=== PATIENT | female | born 1945 | race Two or more races ===

== ENCOUNTER 2022-05-30 14:36 | Inpatient (IN) | payer MEDICARE, MEDICAID ==
[~2022-05-30] VITALS: Ht 152.4 cm; Wt 55.1 kg
[2022-05-30] MEDS ORDERED: ONDANSETRON HCL 4 MG/2 ML VIAL IV ONE (15:00)
[2022-05-30] MEDS ORDERED: PANTOPRAZOLE 40 MG/10 ML VIAL INJ IV ONE ×2 (15:00→17:15)
[2022-05-30] MEDS ORDERED: MORPHINE SULFATE 4 MG/ML SYR/VIAL IV ONE (15:00)
[2022-05-30 15:20] LABS: Eosinophils # (auto) 0 10 ^3/uL (0-0.8); Hemoglobin 13.1 g/dL (12.2-16.2); Lymphocytes # (auto) 0.7 10 ^3/uL (0.4-5.4); Monocytes # (auto) 0.6 10 ^3/uL (0-1.3); Neutrophils % (auto) 87.8 % (37.0-80.0); White Blood Cell 11.4 10^3/uL (4.4-10.8)
[2022-05-30 15:22] LABS: Basophils # (auto) 0 10 ^3/uL (0-0.2); Basophils % (auto) 0.3 % (0.0-2.0); Eosinophils % (auto) 0.1 % (0.0-7.0); Hematocrit 41.3 % (36.0-46.0); Lymphocytes % (auto) 6.3 % (10.0-50.0); Mean Corpuscular Hemoglobin 22.7 pg (28.0-32.0); Mean Corpuscular Hgb Conc. 31.6 g/dL (32.0-36.0); Mean Corpuscular Volume 71.7 fL (80.0-100.0); Monocytes % (auto) 5.5 % (0.0-12.0); Red Blood Cells 5.76 10^6/uL (4.0-5.20); Red Cell Distribution Width 16.4 % (11.8-14.3)
[2022-05-30 15:33] LABS: Albumin 3.7 g/dL (3.4-5.0); Calcium 9.2 mg/dL (8.5-10.1); Magnesium 2.2 mg/dL (1.6-2.6); Potassium 3.8 mmol/L (3.5-5.1)
[2022-05-30 15:50] LABS: BUN/Creatinine Ratio 26.5 (10.0-20.0); Bilirubin, Total 0.9 mg/dL (0.2-1.0)
[2022-05-30 16:02] LABS: Urine Bacteria NONE SEEN /hpf (None Seen); Urine Blood Negative /uL (Negative); Urine Mucus FEW (None Seen); Urine Specific Gravity 1.023 (1.001-1.035); Urine WBC 1 /hpf (0 - 5)
[2022-05-30] MEDS ORDERED: cefTRIAXone 1GM/50ML D5W 50 ML IV ONE (17:15)
[2022-05-30] MEDS ORDERED: ONDANSETRON HCL 4 MG/2 ML VIAL IV PRN (17:15)
[2022-05-30] MEDS ORDERED: metroNIDAZOLE 500MG/100ML 100 ML IV ONE (17:15)
[2022-05-30] MEDS ORDERED: hydrALAZINE HCL 20 MG/ML VL IV PRN (17:15)
[2022-05-30] MEDS ORDERED: LACTATED RINGER'S 1,000 ML IV SCH (17:15)
[2022-05-30] MEDS ORDERED: LOS25T PO (17:44)
[2022-05-30] MEDS ORDERED: MORPHINE SULFATE INJ 2 MG/ml SYRG IV PRN (18:15)
[2022-05-30 18:31] LABS: INR 0.98 (0.9-1.15); Partial Thromboplastin Time 21.3 sec (24.6-33.4)
[2022-05-30 18:35] LABS: Cholesterol 211 mg/dL (< 200); HDL Cholesterol 85 mg/dL (40-59); LDL Cholesterol 116 mg/dL (< 100); Triglycerides 143 mg/dL (< 150)
[2022-05-30] MEDS: metroNIDAZOLE 500MG/100ML 100 ML IV SCH (21:48)
[2022-05-31] MEDS ORDERED: PROMETHAZINE HCL 25 MG/ML 1ML IV ONE (02:00)
[2022-05-31 05:17] LABS: Basophils # (auto) 0 10 ^3/uL (0-0.2); Eosinophils # (auto) 0 10 ^3/uL (0-0.8); Eosinophils % (auto) 0.1 % (0.0-7.0); Hemoglobin 14.9 g/dL (12.2-16.2); Lymphocytes # (auto) 0.3 10 ^3/uL (0.4-5.4); Monocytes # (auto) 0.7 10 ^3/uL (0-1.3); Nucleated Red Blood Cells % 0.1 %
[2022-05-31 05:20] LABS: Basophils % (auto) 0.1 % (0.0-2.0); Hematocrit 47.1 % (36.0-46.0); Lymphocytes % (auto) 5.3 % (10.0-50.0); Mean Corpuscular Hemoglobin 22.9 pg (28.0-32.0); Mean Corpuscular Hgb Conc. 31.6 g/dL (32.0-36.0); Mean Corpuscular Volume 72.6 fL (80.0-100.0); Monocytes % (auto) 11.6 % (0.0-12.0); Neutrophils # (auto) 5.4 10 ^3/uL (1.6-8.6); Neutrophils % (auto) 82.9 % (37.0-80.0); Red Blood Cells 6.48 10^6/uL (4.0-5.20); White Blood Cell 6.5 10^3/uL (4.4-10.8)
[2022-05-31 05:39] LABS: Albumin 3.2 g/dL (3.4-5.0); Calcium 8.4 mg/dL (8.5-10.1); Potassium 3.6 mmol/L (3.5-5.1)
[2022-05-31 05:44] LABS: BUN/Creatinine Ratio 22.8 (10.0-20.0); Bilirubin, Total 1.5 mg/dL (0.2-1.0)
[2022-05-31] MEDS: metroNIDAZOLE 500MG/100ML 100 ML IV SCH ×3 (06:15→17:26)
[2022-05-31] MEDS ORDERED: GASTROGRAFIN 120 ML SOL ONE (08:26)
[2022-05-31] MEDS: cefTRIAXone 1GM/50ML D5W 50 ML IV SCH (09:18)
[2022-05-31] MEDS: PANTOPRAZOLE 40 MG/10 ML VIAL INJ IV SCH (09:18)
[2022-05-31] MEDS ORDERED: LOSARTAN POTASSIUM 25 MG TAB PO SCH (10:00)
[2022-05-31] MEDS ORDERED: cloNIDine HCL 0.1 MG TAB PO PRN (12:15)
[2022-05-31] MEDS: SODIUM CHLORIDE 0.9% 1,000 ML IV SCH ×2 (15:32→23:50)
[2022-05-31 16:14] VITALS: BP 108/67
[2022-05-31 18:08] LABS: Lactic Acid w/Reflex 2.6 mmol/L (0.4-2.0)
[2022-05-31 22:00] VITALS: BP 116/64
[2022-06-01] MEDS: metroNIDAZOLE 500MG/100ML 100 ML IV SCH ×4 (02:15→18:20)
[2022-06-01 05:00] VITALS: BP 109/50
[2022-06-01 06:40] LABS: Basophils # (auto) 0 10 ^3/uL (0-0.2); Eosinophils # (auto) 0 10 ^3/uL (0-0.8); Hemoglobin 11.8 g/dL (12.2-16.2); Lymphocytes # (auto) 0.6 10 ^3/uL (0.4-5.4); Monocytes # (auto) 0.7 10 ^3/uL (0-1.3)
[2022-06-01 06:42] LABS: Basophils % (auto) 0.3 % (0.0-2.0); Eosinophils % (auto) 0.6 % (0.0-7.0); Hematocrit 38.2 % (36.0-46.0); Lymphocytes % (auto) 7.9 % (10.0-50.0); Mean Corpuscular Hemoglobin 22.4 pg (28.0-32.0); Mean Corpuscular Volume 72.3 fL (80.0-100.0); Monocytes % (auto) 9.8 % (0.0-12.0); Neutrophils # (auto) 5.9 10 ^3/uL (1.6-8.6); Neutrophils % (auto) 81.4 % (37.0-80.0); Nucleated Red Blood Cells % 0.1 %; Red Blood Cells 5.29 10^6/uL (4.0-5.20); Red Cell Distribution Width 16.9 % (11.8-14.3); White Blood Cell 7.2 10^3/uL (4.4-10.8)
[2022-06-01] MEDS: SODIUM CHLORIDE 0.9% 1,000 ML IV SCH ×4 (06:45→23:18)
[2022-06-01 06:56] LABS: Albumin 2.6 g/dL (3.4-5.0); BUN/Creatinine Ratio 48.5 (10.0-20.0); Bilirubin, Total 1.1 mg/dL (0.2-1.0); Calcium 7.6 mg/dL (8.5-10.1); Potassium 3.6 mmol/L (3.5-5.1); Total Protein 5.4 g/dL (6.4-8.2)
[2022-06-01 08:00] VITALS: BP 106/54
[2022-06-01] MEDS: PANTOPRAZOLE 40 MG/10 ML VIAL INJ IV SCH (11:00)
[2022-06-01] MEDS: cefTRIAXone 1GM/50ML D5W 50 ML IV SCH (11:54)
[2022-06-01 12:19] VITALS: BP 99/49
[2022-06-01 16:27] VITALS: BP 107/54
[2022-06-01 22:00] VITALS: BP 104/54
[2022-06-02] MEDS: metroNIDAZOLE 500MG/100ML 100 ML IV SCH ×3 (02:31→18:20)
[2022-06-02 05:00] VITALS: BP 99/58
[2022-06-02] MEDS: SODIUM CHLORIDE 0.9% 1,000 ML IV SCH ×2 (06:45→14:45)
[2022-06-02 09:00] VITALS: BP 106/50
[2022-06-02] MEDS: cefTRIAXone 1GM/50ML D5W 50 ML IV SCH (10:04)
[2022-06-02] MEDS: PANTOPRAZOLE 40 MG/10 ML VIAL INJ IV SCH (10:05)
[2022-06-02 12:40] VITALS: BP 106/48
[2022-06-02] MEDS ORDERED: METR500T PO (15:17)
[2022-06-02] MEDS ORDERED: LEVO500T31 PO (15:17)
[2022-06-02 16:15] VITALS: BP 110/48
== END 2022-06-02 20:10 | disposition home or self-care (01) | DRG 388 ==
LOC: ER 14:36 → OVERFLOW 17:32 → TELE-EAST 05-31 15:43 → EAST 05-31 16:57
PROVIDERS: ADMIT Nurse Practitioner Family; ATTEND Internal Medicine
PROC: 0D9670Z Drainage of Stomach with Drainage Device, Via Natural or Artificial Opening (ICD-10-PCS; principal; 2022-05-30)
DX: K56.600 Partial intestinal obstruction, unspecified as to cause (principal); N17.0 Acute kidney failure with tubular necrosis; R65.10 Systemic inflammatory response syndrome (SIRS) of non-infectious origin without acute organ dysfunction; K52.9 Noninfective gastroenteritis and colitis, unspecified; D72.829 Elevated white blood cell count, unspecified; I10 Essential (primary) hypertension; Z20.822 Contact with and (suspected) exposure to COVID-19; Z85.038 Personal history of other malignant neoplasm of large intestine; Z90.49 Acquired absence of other specified parts of digestive tract; Z90.710 Acquired absence of both cervix and uterus
CPT/HCPCS: 36415; 74176; 74250; 80053; 80061; 81001; 83036; 83605; 83690; 83735; 84443; 84484; 85025; 85610; 85730; 87040; 87086; 87426; 93005; 93306; C9113; G0378; J0696; J2405; J3490

== ENCOUNTER 2022-12-27 10:19 | Inpatient (IN) | payer MEDICARE, MEDICAID ==
[~2022-12-27] VITALS: Ht 152.4 cm; Wt 52.2 kg
[~2022-12-27 10:19] MED LIST: LEVO500T31 PO; LOS25T PO; METR500T PO
[2022-12-27 11:00] LABS: Basophils # (auto) 0 10 ^3/uL (0-0.2); Basophils % (auto) 0.9 % (0.0-2.0); Eosinophils # (auto) 0 10 ^3/uL (0-0.8); Eosinophils % (auto) 0.6 % (0.0-7.0); Hematocrit 45.2 % (36.0-46.0); Hemoglobin 15.3 g/dL (12.2-16.2); Lymphocytes # (auto) 1.1 10 ^3/uL (0.4-5.4); Lymphocytes % (auto) 22.3 % (10.0-50.0); Mean Corpuscular Hemoglobin 29.1 pg (28.0-32.0); Mean Corpuscular Hgb Conc. 33.9 g/dL (32.0-36.0); Monocytes # (auto) 0.5 10 ^3/uL (0-1.3); Monocytes % (auto) 10.1 % (0.0-12.0); Neutrophils # (auto) 3.1 10 ^3/uL (1.6-8.6); Neutrophils % (auto) 66.1 % (37.0-80.0); Nucleated Red Blood Cells % 0.1 %; Red Blood Cells 5.25 10^6/uL (4.0-5.20); Red Cell Distribution Width 13.7 % (11.8-14.3); White Blood Cell 4.8 10^3/uL (4.4-10.8)
[2022-12-27 11:20] LABS: Alanine Aminotransferase 18 U/L (7-40); Albumin 4.3 g/dL (3.2-4.8); Alkaline Phosphatase 68 U/L (46-116); Anion Gap 6 (5-15); Aspartate Aminotransferase 14 U/L (13-40); BUN/Creatinine Ratio 16.7 (10.0-20.0); Blood Urea Nitrogen 14 mg/dL (9-23); Calcium 9.7 mg/dL (8.7-10.4); Carbon Dioxide 29 mmol/L (20-30); Chloride 104 mmol/L (98-107); Glucose 111 mg/dL (74-106); Lipase 39 U/L (12-53); Potassium 3.8 mmol/L (3.5-5.1); Sodium 139 mmol/L (136-145)
[2022-12-27 11:21] LABS: Total Protein 6.7 g/dL (5.7-8.2)
[2022-12-27 11:47] LABS: Urine Bacteria NONE SEEN /hpf (None Seen); Urine Blood Negative /uL (Negative); Urine Clarity Clear (Clear); Urine Color Yellow (Yellow); Urine Mucus FEW (None Seen); Urine Protein, UAD Negative (Negative); Urine Urobilinogen Normal (Negative); Urine WBC 3 /hpf (0 - 5)
[2022-12-27] MEDS ORDERED: NITR-87 PO (11:53)
[2022-12-27 12:09] LABS: Bilirubin, Total 1.3 mg/dL (0.2-1.0)
[2022-12-27] MEDS ORDERED: ONDANSETRON HCL 4 MG/2 ML VIAL IV PRN (16:45)
[2022-12-27] MEDS ORDERED: cefTRIAXone 1GM/50ML D5W 50 ML IV ONE (16:45)
[2022-12-27] MEDS ORDERED: VANCOMYCIN HCL 125MG/5ML ORAL SOL GT ONE (16:45)
[2022-12-27] MEDS ORDERED: ACETAMINOPHEN 325 MG TAB PO PRN (16:45)
[2022-12-27] MEDS ORDERED: hydrALAZINE HCL 20 MG/ML VL IV PRN (17:00)
[2022-12-27] MEDS ORDERED: PANTOPRAZOLE 40 MG TAB PO ONE (17:00)
[2022-12-27] MEDS ORDERED: KETOROLAC TROMETH 60MG/2ML VIAL IV ONE (17:00)
[2022-12-27] MEDS: SODIUM CHLORIDE 0.9% 1,000 ML IV SCH (18:06)
[2022-12-27] MEDS: VANCOMYCIN HCL 125MG/5ML ORAL SOL GT SCH ×2 (19:15→22:00)
[2022-12-28 04:31] LABS: Basophils # (auto) 0 10 ^3/uL (0-0.2); Basophils % (auto) 1.1 % (0.0-2.0); Eosinophils # (auto) 0.1 10 ^3/uL (0-0.8); Eosinophils % (auto) 2.1 % (0.0-7.0); Hematocrit 40.3 % (36.0-46.0); Hemoglobin 13.2 g/dL (12.2-16.2); Lymphocytes # (auto) 1.2 10 ^3/uL (0.4-5.4); Lymphocytes % (auto) 29.7 % (10.0-50.0); Mean Corpuscular Hemoglobin 28.2 pg (28.0-32.0); Mean Corpuscular Hgb Conc. 32.7 g/dL (32.0-36.0); Mean Corpuscular Volume 86.2 fL (80.0-100.0); Monocytes # (auto) 0.5 10 ^3/uL (0-1.3); Monocytes % (auto) 13.8 % (0.0-12.0); Neutrophils # (auto) 2.1 10 ^3/uL (1.6-8.6); Neutrophils % (auto) 53.3 % (37.0-80.0); Nucleated Red Blood Cells % 0.1 %; Red Blood Cells 4.68 10^6/uL (4.0-5.20); Red Cell Distribution Width 13.9 % (11.8-14.3)
[2022-12-28 04:48] LABS: Alanine Aminotransferase 12 U/L (7-40); Albumin 3.5 g/dL (3.2-4.8); Alkaline Phosphatase 52 U/L (46-116); Anion Gap 6 (5-15); Aspartate Aminotransferase 10 U/L (13-40); BUN/Creatinine Ratio 16.2 (10.0-20.0); Bilirubin, Total 1.2 mg/dL (0.2-1.0); Blood Urea Nitrogen 12 mg/dL (9-23); Calcium 8.8 mg/dL (8.7-10.4); Carbon Dioxide 26 mmol/L (20-30); Chloride 108 mmol/L (98-107); Potassium 3.8 mmol/L (3.5-5.1); Sodium 140 mmol/L (136-145); Total Protein 5.7 g/dL (5.7-8.2)
[2022-12-28 05:05] LABS: Glucose 82 mg/dL (74-106)
[2022-12-28] MEDS: SODIUM CHLORIDE 0.9% 1,000 ML IV SCH ×2 (06:05→20:21)
[2022-12-28] MEDS: VANCOMYCIN HCL 125MG/5ML ORAL SOL GT SCH ×4 (06:32→22:28)
[2022-12-28 08:00] VITALS: PULSE 64; RESP 17; O2SAT 97
[2022-12-28] MEDS: cefTRIAXone 1GM/50ML D5W 50 ML IV SCH (09:46)
[2022-12-28] MEDS: PANTOPRAZOLE 40 MG TAB PO SCH (12:02)
[2022-12-28] MEDS: LOSARTAN POTASSIUM 25 MG TAB PO SCH ×2 (12:20→12:23)
[2022-12-29 05:14] LABS: Alanine Aminotransferase 10 U/L (7-40); Albumin 3.4 g/dL (3.2-4.8); Alkaline Phosphatase 52 U/L (46-116); Anion Gap 6 (5-15); Aspartate Aminotransferase 11 U/L (13-40); BUN/Creatinine Ratio 9.1 (10.0-20.0); Bilirubin, Total 1.4 mg/dL (0.2-1.0); Blood Urea Nitrogen 6 mg/dL (9-23); Calcium 8.5 mg/dL (8.7-10.4); Carbon Dioxide 25 mmol/L (20-30); Chloride 111 mmol/L (98-107); Magnesium 1.9 mg/dL (1.6-2.6); Potassium 3.8 mmol/L (3.5-5.1); Sodium 142 mmol/L (136-145)
[2022-12-29 05:15] LABS: Total Protein 5.6 g/dL (5.7-8.2)
[2022-12-29 05:18] LABS: Folate (Folic Acid) 18.51 ng/mL (>5.38)
[2022-12-29 05:21] LABS: Basophils # (auto) 0 10 ^3/uL (0-0.2); Basophils % (auto) 0.9 % (0.0-2.0); Eosinophils # (auto) 0.1 10 ^3/uL (0-0.8); Eosinophils % (auto) 2.7 % (0.0-7.0); Hematocrit 40.4 % (36.0-46.0); Hemoglobin 13.4 g/dL (12.2-16.2); Lymphocytes # (auto) 0.8 10 ^3/uL (0.4-5.4); Lymphocytes % (auto) 26.8 % (10.0-50.0); Mean Corpuscular Hemoglobin 28.5 pg (28.0-32.0); Mean Corpuscular Hgb Conc. 33.2 g/dL (32.0-36.0); Mean Corpuscular Volume 86.1 fL (80.0-100.0); Monocytes # (auto) 0.4 10 ^3/uL (0-1.3); Neutrophils # (auto) 1.8 10 ^3/uL (1.6-8.6); Neutrophils % (auto) 56.6 % (37.0-80.0); Nucleated Red Blood Cells % 0.2 %; Red Cell Distribution Width 13.8 % (11.8-14.3); White Blood Cell 3.1 10^3/uL (4.4-10.8)
[2022-12-29 05:34] LABS: INR 1.04 (0.9-1.15); Prothrombin Time 10.9 sec (9.3-11.8)
[2022-12-29 05:47] LABS: Glucose 81 mg/dL (74-106); Triglycerides 108 mg/dL (< 150)
[2022-12-29 05:48] LABS: CRP High Sensitivity 0.06 mg/dL (<1.0); LDL Cholesterol 75 mg/dL (< 100)
[2022-12-29 05:49] LABS: Cholesterol 135 mg/dL (< 200); HDL Cholesterol 50 mg/dL (40-59)
[2022-12-29 05:58] LABS: Erythrocyte Sedimentation Rate 6 mm/hr (0-20)
[2022-12-29] MEDS: VANCOMYCIN HCL 125MG/5ML ORAL SOL GT SCH (06:07)
[2022-12-29] MEDS: SODIUM CHLORIDE 0.9% 1,000 ML IV SCH (09:24)
[2022-12-29] MEDS: cefTRIAXone 1GM/50ML D5W 50 ML IV SCH (09:24)
[2022-12-29] MEDS: LOSARTAN POTASSIUM 25 MG TAB PO SCH (11:15)
[2022-12-29] MEDS: PANTOPRAZOLE 40 MG TAB PO SCH (11:16)
[2022-12-29 11:28] VITALS: BP 123/59; PULSE 76; RESP 95; TEMP 98.4; O2SAT 95
[2022-12-29 13:14] LABS: Urine Bacteria NONE SEEN /hpf (None Seen); Urine Blood Negative /uL (Negative); Urine Clarity Clear (Clear); Urine Color Colorless (Yellow); Urine Protein, UAD Negative (Negative); Urine Specific Gravity 1.004 (1.001-1.035); Urine Urobilinogen Normal (Negative); Urine WBC 3 /hpf (0 - 5); Urine pH 6.5 (5.0-8.0)
[2022-12-30] MEDS ORDERED: FAMOTIDINE 20 MG TAB PO SCH (10:00)
== END 2022-12-29 14:53 | disposition home or self-care (01) | DRG 392 ==
LOC: ER 10:19 → OVERFLOW 16:47
PROVIDERS: ADMIT Internal Medicine; ATTEND Student in an Organized Health Care Education/Training Program
DX: A05.9 Bacterial foodborne intoxication, unspecified (principal); I10 Essential (primary) hypertension; R19.7 Diarrhea, unspecified; N20.0 Calculus of kidney; Z66 Do not resuscitate; Z85.048 Personal history of other malignant neoplasm of rectum, rectosigmoid junction, and anus; Z90.710 Acquired absence of both cervix and uterus; Z93.3 Colostomy status; Z90.49 Acquired absence of other specified parts of digestive tract; E53.8 Deficiency of other specified B group vitamins
CPT/HCPCS: 36415; 74176; 76705; 80053; 80061; 81001; 82306; 82607; 82746; 83036; 83605; 83690; 83735; 84443; 84484; 85025; 85610; 85652; 86141; 87045; 87086; 87177; 87427; 87493; 93005; 96365; G0378; J0696; J1885

== ENCOUNTER 2024-05-04 21:52 | Emergency (ER) | payer MEDICARE, MEDICAID ==
[~2024-05-04] VITALS: Ht 147.3 cm; Wt 52.5 kg
[~2024-05-04 21:52] MED LIST changes: +NITR-87 PO
[2024-05-04 22:40] LABS: Basophils # (auto) 0 10 ^3/uL (0-0.2); Basophils % (auto) 0.5 % (0.0-2.0); Eosinophils # (auto) 0 10 ^3/uL (0-0.8); Eosinophils % (auto) 0.2 % (0.0-7.0); Hematocrit 43.9 % (36.0-46.0); Hemoglobin 14.3 g/dL (12.2-16.2); Lymphocytes # (auto) 0.8 10 ^3/uL (0.4-5.4); Lymphocytes % (auto) 10.3 % (10.0-50.0); Mean Corpuscular Hemoglobin 27.4 pg (28.0-32.0); Mean Corpuscular Hgb Conc. 32.7 g/dL (32.0-36.0); Mean Corpuscular Volume 83.8 fL (80.0-100.0); Monocytes # (auto) 0.8 10 ^3/uL (0-1.3); Monocytes % (auto) 9.1 % (0.0-12.0); Neutrophils # (auto) 6.6 10 ^3/uL (1.6-8.6); Neutrophils % (auto) 79.9 % (37.0-80.0); Platelet Count (auto) 256 10^3/uL (140-450); Red Blood Cells 5.24 10^6/uL (4.0-5.20); Red Cell Distribution Width 14.4 % (11.8-14.3); White Blood Cell 8.2 10^3/uL (4.4-10.8)
[2024-05-04 22:45] LABS: Urine Bacteria None Seen /hpf (None Seen)
[2024-05-04 22:58] LABS: Urine Blood Negative /uL (Negative); Urine Clarity Clear (Clear); Urine Color Colorless (Yellow); Urine Protein, UAD Negative (Negative); Urine Specific Gravity 1.006 (1.001-1.035); Urine Squamous Epithelial Cell None Seen /hpf (<5); Urine Urobilinogen Normal (Negative); Urine WBC 29 /HPF (0-5)
[2024-05-04 23:02] LABS: Alanine Aminotransferase 16 U/L (7-40); Albumin 4.4 g/dL (3.2-4.8); Alkaline Phosphatase 56 U/L (46-116); Anion Gap 8 (5-15); Aspartate Aminotransferase 18 U/L (13-40); BUN/Creatinine Ratio 15.4 (10.0-20.0); Bilirubin, Total 0.8 mg/dL (0.2-1.0); Blood Urea Nitrogen 10 mg/dL (9-23); Calcium 10.2 mg/dL (8.7-10.4); Carbon Dioxide 26 mmol/L (20-31); Chloride 105 mmol/L (98-107); Lipase 41 U/L (12-53); Potassium 4.3 mmol/L (3.5-5.1); Sodium 139 mmol/L (136-145); Total Protein 6.6 g/dL (5.7-8.2)
--- NOTE | 2024-05-04 23:13 | ED.PDOC ---
History of Present Illness HPI Comments 78 y/o F presents with relative for c/o bilateral lower quadrant abdominal pain that radiates towards her back, today. She denies any urinary symptoms, nausea, vomiting, flank pain, fever, or chills at this time. Chief Complaint: Flank Pain Time Seen by MD: 22:10 Primary Care Provider: OSBALDO Allen Notes: Nurses Notes, Medications, Allergies Allergies: Coded Allergies: NO KNOWN ALLERGIES (Unverified , 05/30/22) Home Meds Active Scripts Cefdinir (Cefdinir) 300 Mg Cap, 1 CAP PO BID for 7 Days, #14 CAP Prov:LOREE LEDBETTER MD 05/05/24 Nitrofurantoin Monohydrate Mac (Macrobid) 100 Mg Cap, 100 MG PO BID for 5 Days, #10 CAP Prov:ROBERT AQUINO MD 12/27/22 Metronidazole (Flagyl) 500 Mg Tab, 500 MG PO TID for 5 Days, #15 TAB Prov:PILI COLBERT MD 06/02/22 Levofloxacin (Levaquin) 500 Mg Tab, 500 MG PO QAM for 5 Days, #5 TAB Prov:PILI COLBERT MD 06/02/22 Reported Medications Losartan Potassium (Losartan Potassium) 25 Mg Tab, 1 TAB PO DAILY 05/30/22 Information Source: Patient, Relative Mode of Arrival: Ambulatory Severity: Moderate Timing: Hours Duration: Since onset Prehospital treatment: None Past Medical History PAST MEDICAL HISTORY: Cancer Surgical History: Cholecystectomy, Hysterectomy DIGITAL SALES REPRESENTATIVE History: No Pertinent DIGITAL SALES REPRESENTATIVE History Family History Family History: Reviewed,noncontributory to illness Social History Smoker: Non-Smoker Alcohol: Denies ETOH Use Drugs: Denies Drug Use Lives In: Home All Other Systems: Reviewed and Negative (comprehensive overview of systems negative unless otherwise stated in HPI) Physical Exam General Appearance: Mild Distress, Normal HEENT: Normal ENT Inspection, Pharynx Normal, TMs Normal Neck: Full Range of Motion, Non-Tender, Normal, Normal Inspection Respiratory: Chest Non-Tender, Lungs Clear, No Accessory Muscle Use, No Respiratory Distress, Normal Breath Sounds Cardiovascular: No Edema, No JVD, No Murmur, No Gallop, Normal Peripheral Pulses, Regular Rate/Rhythm Breast Exam: Deferred Gastrointestinal: LLQ, No Organomegaly, No Pulsatile Mass, Normal Bowel Sounds, RLQ, Soft, Tenderness (bilateral lower quadrants ) Genitalia: Deferred Pelvic: Deferred Rectal: Deferred Extremities: No calf tenderness, Normal capillary refill, Normal inspection, Normal range of motion, Non-tender, No pedal edema Musculoskeletal : Apperance: Normal Neurologic: Alert, 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 Was a procedure done?: No Differential Dx Considerations may include: PID, ovarian cysts, ovarian torsions, musculoskeletal pain, diverticulitis, UTI X-Ray, Labs, Meds, VS Vital Signs Date Time Temp Pulse Resp B/P (MAP) Pulse Ox O2 Delivery O2 Flow Rate FiO2 05/05/24 01:35 65 12 130/62 (84) 96 05/05/24 00:48 78 12 121/63 05/05/24 00:45 78 12 95 Room Air* 0 21 05/05/24 00:44 98.6 78 12 121/63 (82) 95 98.6 05/04/24 22:23 98.3 79 16 137/70 (92) 97 Lab Test 05/04/24 22:30 05/04/24 22:27 Range/Units White Blood Count 8.2 4.4-10.8 10^3/uL Red Blood Count 5.24 H 4.0-5.20 10^6/uL Hemoglobin 14.3 12.2-16.2 g/dL Hematocrit 43.9 36.0-46.0 % Mean Corpuscular Volume 83.8 80.0-100.0 fL Mean Corpuscular Hemoglobin 27.4 L 28.0-32.0 pg Mean Corpuscular Hemoglobin Concent 32.7 32.0-36.0 g/dL Red Cell Distribution Width 14.4 H 11.8-14.3 % Platelet Count 256 140-450 10^3/uL Mean Platelet Volume 8.5 6.9-10.8 fL Neutrophils (%) (Auto) 79.9 37.0-80.0 % Lymphocytes (%) (Auto) 10.3 10.0-50.0 % Monocytes (%) (Auto) 9.1 0.0-12.0 % Eosinophils (%) (Auto) 0.2 0.0-7.0 % Basophils (%) (Auto) 0.5 0.0-2.0 % Neutrophils # (Auto) 6.6 1.6-8.6 10 ^3/uL Lymphocytes # (Auto) 0.8 0.4-5.4 10 ^3/uL Monocytes # (Auto) 0.8 0-1.3 10 ^3/uL Eosinophils # (Auto) 0 0-0.8 10 ^3/uL Basophils # (Auto) 0 0-0.2 10 ^3/uL Nucleated Red Blood Cells 0.0 % Sodium Level 139 136-145 mmol/L Potassium Level 4.3 3.5-5.1 mmol/L Chloride Level 105 98-107 mmol/L Carbon Dioxide Level 26 20-31 mmol/L Anion Gap 8 5-15 Blood Urea Nitrogen 10 9-23 mg/dL Creatinine 0.65 0.550-1.02 mg/dL Glomerular Filtration Rate Calc 90 >90 mL/min BUN/Creatinine Ratio 15.4 10.0-20.0 Serum Glucose 108 H 74-106 mg/dL Calcium Level 10.2 8.7-10.4 mg/dL Total Bilirubin 0.8 0.2-1.0 mg/dL Aspartate Amino Transferase (AST) 18 13-40 U/L Alanine Aminotransferase (ALT) 16 7-40 U/L Alkaline Phosphatase 56 46-116 U/L Total Protein 6.6 5.7-8.2 g/dL Albumin 4.4 3.2-4.8 g/dL Lipase 41 12-53 U/L Urine Color Colorless Yellow Urine Clarity Clear Clear Urine pH 7.0 5.0-9.0 Urine Specific [place] 1.006 1.001-1.035 Urine Protein Negative Negative Urine Ketones Negative Negative Urine Blood Negative Negative /uL Urine Nitrite Negative Negative Urine Bilirubin Negative Negative Urine Urobilinogen Normal Negative mg/dL Urine Leukocyte Esterase 2+ Negative /uL Urine RBC 4 0 - 4 /hpf Urine Microscopic WBC 29 H 0-5 /HPF Urine Squamous Epithelial Cells None seen <5 /hpf Urine Bacteria None seen None Seen /hpf Urine Glucose Normal Normal mg/dL Current Medications Medications (Trade) Dose Ordered Sig/Jayy Route Start Time Stop Time Status Last Admin Ondansetron HCl (Zofran) 4 mg ONCE ONCE IV 05/04/24 22:30 05/04/24 22:31 DC 05/05/24 00:47 Morphine Sulfate 4 mg ONCE ONCE IV 05/04/24 22:30 05/04/24 22:31 DC 05/05/24 00:48 Sodium Chloride 500 ml @ 500 mls/hr Q1H ONCE IVB 05/04/24 22:30 05/04/24 23:29 DC 05/05/24 00:46 Ceftriaxone Sodium 50 ml @ 100 mls/hr ONCE ONCE IV 05/05/24 00:45 05/05/24 01:14 DC 05/05/24 00:46 Time of 1ST Reevaluation: 22:40 Reevaluation 1ST: Unchanged Time of 2ND Reevaluation: 23:30 Reevaluation 2ND: Improved Patient Education/Counseling: Diagnosis, Treatment Family Education/Counseling: Diagnosis, Treatment Departure 1 Departure Time of Disposition: 23:30 Impression: Primary Impression: UTI (urinary tract infection) Additional Impression: Acute abdominal pain Disposition: HOME / SELF CARE / HOMELESS Condition: Guarded e-Prescriptions Cefdinir (Cefdinir) 300 Mg Cap 1 CAP PO BID for 7 Days, #14 CAP Prov: LOREE LEDBETTER MD 05/05/24 Discharged With: Self Critical Care Note Critical Care Time?: No Stability Stability form required: No Heart Score Heart Score: Heart Score Response (Comments) Value History N/A 0 EKG N/A 0 Age N/A 0 Risk Factors N/A 0 Troponin N/A 0 Total 0 I personally scribed for LOREE LEDBETTER MD ([email or web address]) on 05/04/24 at 23:13. Electronically submitted by Rip Echeverria ([email or web address]). LOREE LEDBETTER MD May 04, 2024 23:13
[2024-05-04 23:17] LABS: Glucose 108 mg/dL (74-106)
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
[2024-05-05] MEDS ORDERED: CEFD300C2 PO (00:37)
[2024-05-05 00:44] VITALS: TEMP 98.6
[2024-05-05 00:45] VITALS: PULSE 78; RESP 12; O2SAT 95
[2024-05-05] MEDS: cefTRIAXone 1GM/50ML D5W 50 ML IV ONE (00:46)
[2024-05-05] MEDS: SODIUM CHLORIDE 0.9% 500 ML IVB ONE (00:46)
[2024-05-05] MEDS: ONDANSETRON HCL 4 MG/2 ML VIAL IV ONE (00:47)
[2024-05-05] MEDS: IOHEXOL 300 MG/ML 100ML BOTTLE IJ ONE (00:48)
[2024-05-05] MEDS: MORPHINE SULFATE 4 MG/ML SYR/VIAL IV ONE (00:48)
[2024-05-05 01:35] VITALS: BP 130/62; PULSE 65; RESP 12; O2SAT 96
== END 2024-05-05 01:40 | disposition home or self-care (01) ==
LOC: ER 21:52
DX: N39.0 Urinary tract infection, site not specified (principal); Z90.49 Acquired absence of other specified parts of digestive tract; Z90.710 Acquired absence of both cervix and uterus; Z79.899 Other long term (current) drug therapy
CPT/HCPCS: 36415; 74177; 80053; 81001; 83690; 85025; 96365; 96375; 99285; J0696; J2270; J2405; J7040; Q9967

== ENCOUNTER 2024-05-28 09:39 | Inpatient (IN) | payer MEDICARE, MEDICAID ==
[~2024-05-28] VITALS: Ht 144.8 cm; Wt 51.0 kg
[~2024-05-28 09:39] MED LIST changes: +CEFD300C2 PO
[2024-05-28 10:25] LABS: Urine Bacteria None Seen /hpf (None Seen)
[2024-05-28 10:38] LABS: Urine Blood 1+ /uL (Negative); Urine Clarity Clear (Clear); Urine Color Yellow (Yellow); Urine Protein, UAD Negative (Negative); Urine Specific Gravity 1.017 (1.001-1.035); Urine Squamous Epithelial Cell FEW /hpf (<5); Urine Urobilinogen Normal (Negative); Urine WBC 3 /HPF (0-5); Urine pH 5.5 (5.0-9.0)
--- NOTE | 2024-05-28 10:41 | ED.PDOC ---
GI ASSESSMENT HPI Comments 78 y/o F, with PMHX of colorectal cancer and HTN presents to the ED for CC of constipation. Patient states, that she has been experiencing symptoms of constipation with associated diffuse abdominal pain, back pain, and chills x3days. Patient relays, that she took MiraLAX in attempt to have a bowel movement; provided no relief. Patient comments on, being admitted to [facility] in past with similar symptoms. Patient denies fever, nausea, body-aches, or irregular diet. No other symptoms or modifying factors at this time. Chief Complaint: Abdominal Pain Time Seen by MD: 10:15 Primary Care Provider: OSBALDO Allen Notes: Nurses Notes, Medications, Allergies Allergies: Coded Allergies: NO KNOWN ALLERGIES (Unverified , 05/30/22) Home Meds Active Scripts Cefdinir (Cefdinir) 300 Mg Cap, 1 CAP PO BID for 7 Days, #14 CAP Prov:LOREE LEDBETTER MD 05/05/24 Nitrofurantoin Monohydrate Mac (Macrobid) 100 Mg Cap, 100 MG PO BID for 5 Days, #10 CAP Prov:ROBERT AQUINO MD 12/27/22 Metronidazole (Flagyl) 500 Mg Tab, 500 MG PO TID for 5 Days, #15 TAB Prov:PILI COLBERT MD 06/02/22 Levofloxacin (Levaquin) 500 Mg Tab, 500 MG PO QAM for 5 Days, #5 TAB Prov:PILI COLBERT MD 06/02/22 Reported Medications Losartan Potassium (Losartan Potassium) 25 Mg Tab, 1 TAB PO DAILY 05/30/22 Information Source: Patient Mode of Arrival: Ambulatory Timing: Days Duration: Since onset Prehospital treatment: None Quality: None Vomitus: None Stool: Impaction Severity: Moderate Recent: None Recent Hx of: None Pain Location: Diffuse Modifying Factors: Nothing Associated sign and symptoms: Abdominal Pain Past Medical History PAST MEDICAL HISTORY: Cancer Surgical History: Cholecystectomy, Hysterectomy PIN WORKER History: No Pertinent PIN WORKER History Family History Family History: Reviewed,noncontributory to illness Social History Smoker: Non-Smoker Alcohol: Denies ETOH Use Drugs: Denies Drug Use Lives In: Home Constitutional: reports: chills; denies: diaphoresis, fatigue, fever, malaise, sweats, weakness, others EENTM: denies: blurred vision, double vision, ear bleeding, ear discharge, ear drainage, ear pain, ear ringing, eye pain, eye redness, hearing loss, mouth pain, mouth swelling, nasal discharge, nose bleeding, nose congestion, nose pain, photophobia, tearing, throat pain, throat swelling, voice changes, others Respiratory: denies: cough, hemoptysis, orthopnea, SOB at rest, shortness of breath, SOB with excertion, stridor, wheezing, others Cardiovascular: denies: chest pain, dizzy spells, diaphoresis, Dyspnea on exertion, edema, irregular heart beat, left arm pain, lightheadedness, palpitations, PND, syncope, others Gastrointestinal: reports: abdominal pain, constipated; denies: abdomen distended, blood streaked bowels, diarrhea, dysphagia, difficulty swallowing, hematemesis, melena, nausea, poor appetite, poor fluid intake, rectal bleeding, rectal pain, vomiting, others Genitourinary: denies: abnormal vagina bleeding, burning, dyspareunia, dysuria, flank pain, frequency, hematuria, incontinence, pain, , vagina discharge, urgency, others Neurological: denies: dizziness, fainting, headache, left sided numbness, left sided weakness, numbness, paresthesia, pre-existing deficit, right sided numbness, right sided weakness, seizure, speech problems, tingling, tremors, weakness, others Musculoskeletal: reports: back pain; denies: gout, joint pain, joint swelling, muscle pain, muscle stiffness, neck pain, others Integumetry: denies: bruises, change in color, change in hair/nails, dryness, laceration, lesions, lumps, rash, wounds, others Allergic/Immunocompromised: denies: Difficulty Healing, Frequent Infections, Hives, Itching, others Hematologic/Lymphatic: denies: anemia, blood clots, easy bleeding, easy bruising, swollen glands, others Endocrine: denies: excessive hunger, excessive sweating, excessive thirst, excessive urination, flushing, intolerance to cold, intolerance to heat, unexplained weight gain, unexplained weight loss, others Psychiatric: denies: anxiety, bipolar disorder, depression, hopeless, panic disorder, schizophrenia, sleepless, suicidal, others All Other Systems: Reviewed and Negative Physical Exam General Appearance: Mild Distress HEENT: Normal ENT Inspection, Pharynx Normal, TMs Normal Neck: Full Range of Motion, Non-Tender, Normal, Normal Inspection Respiratory: Chest Non-Tender, Lungs Clear, No Accessory Muscle Use, No Respiratory Distress, Normal Breath Sounds Cardiovascular: No Edema, No JVD, No Murmur, No Gallop, Normal Peripheral Pulses, Regular Rate/Rhythm Breast Exam: Deferred Gastrointestinal: Diffuse, No Organomegaly, No Pulsatile Mass, Normal Bowel Sounds, Soft, Tenderness Genitalia: Deferred Pelvic: Deferred Rectal: Deferred Extremities: No calf tenderness, Normal capillary refill, Normal inspection, Normal range of motion, Non-tender, No pedal edema Musculoskeletal : Apperance: Normal 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 Was a procedure done?: No GI differential Dx Differential Diagnosis: Bowel Obstruction, Constipation X-Ray, Labs, Meds, VS Vital Signs Date Time Temp Pulse Resp B/P (MAP) Pulse Ox O2 Delivery O2 Flow Rate FiO2 05/28/24 09:58 97.0 81 18 176/76 (109) 97 97.0 Lab Test 05/28/24 10:38 05/28/24 09:11 Range/Units White Blood Count 6.3 4.4-10.8 10^3/uL Red Blood Count 5.21 H 4.0-5.20 10^6/uL Hemoglobin 15.2 12.2-16.2 g/dL Hematocrit 44.9 36.0-46.0 % Mean Corpuscular Volume 86.2 80.0-100.0 fL Mean Corpuscular Hemoglobin 29.2 28.0-32.0 pg Mean Corpuscular Hemoglobin Concent 33.9 32.0-36.0 g/dL Red Cell Distribution Width 15.6 H 11.8-14.3 % Platelet Count 237 140-450 10^3/uL Mean Platelet Volume 8.4 6.9-10.8 fL Neutrophils (%) (Auto) 77.2 37.0-80.0 % Lymphocytes (%) (Auto) 12.0 10.0-50.0 % Monocytes (%) (Auto) 10.1 0.0-12.0 % Eosinophils (%) (Auto) 0.4 0.0-7.0 % Basophils (%) (Auto) 0.3 0.0-2.0 % Neutrophils # (Auto) 4.8 1.6-8.6 10 ^3/uL Lymphocytes # (Auto) 0.8 0.4-5.4 10 ^3/uL Monocytes # (Auto) 0.6 0-1.3 10 ^3/uL Eosinophils # (Auto) 0 0-0.8 10 ^3/uL Basophils # (Auto) 0 0-0.2 10 ^3/uL Nucleated Red Blood Cells 0.0 % Sodium Level 142 136-145 mmol/L Potassium Level 4.0 3.5-5.1 mmol/L Chloride Level 107 98-107 mmol/L Carbon Dioxide Level 28 20-31 mmol/L Anion Gap 7 5-15 Blood Urea Nitrogen 12 9-23 mg/dL Creatinine 0.74 0.550-1.02 mg/dL Glomerular Filtration Rate Calc 82 >90 mL/min BUN/Creatinine Ratio 16.2 10.0-20.0 Serum Glucose 87 74-106 mg/dL Calcium Level 9.6 8.7-10.4 mg/dL Urine Color Yellow Yellow Urine Clarity Clear Clear Urine pH 5.5 5.0-9.0 Urine Specific [place] 1.017 1.001-1.035 Urine Protein Negative Negative Urine Ketones Negative Negative Urine Blood 1+ H Negative /uL Urine Nitrite Negative Negative Urine Bilirubin Negative Negative Urine Urobilinogen Normal Negative mg/dL Urine Leukocyte Esterase Negative Negative /uL Urine RBC 5 0 - 4 /hpf Urine Microscopic WBC 3 0-5 /HPF Urine Squamous Epithelial Cells Few <5 /hpf Urine Bacteria None seen None Seen /hpf Urine Glucose Normal Normal mg/dL The patient's CBC is within normal limits. The chemistry panel is within normal limits The urine test is negative An IV Hep-Lock was established. The CT scan of the abdomen and pelvis shows: IMPRESSION: 1. Large amount of stool throughout the colon suggesting constipation. 2. No small bowel obstruction. 3. Moderate hiatal hernia with wall thickening of the herniated portions of the stomach 4. Postsurgical changes of prior cholecystectomy. Mild prominence of the common bile duct may be seen after cholecystectomy due to reservoir effect, appears unchanged. The patient was having a significant amount of pain with this constipation The patient was going to be admitted with fecal impaction. The patient understands and agrees with the management. Images Reviewed?: Images reviewed and evaluated by me Time of 1ST Reevaluation: 10:45 Reevaluation 1ST: Unchanged Patient Education/Counseling: Diagnosis, Treatment, Prognosis Family Education/Counseling: No Family Present Departure 1 Departure Time of Disposition: 11:29 Impression: Primary Impression: Acute abdominal pain Additional Impression: Fecal impaction Disposition: ADMITTED INPATIENT Admit to: Med Surg Condition: Fair Critical Care Note Critical Care Time?: No Stability Stability form required: Yes Unstable for transfer: ED Physician Assesment (Clinical assesment) Heart Score Heart Score: Heart Score Response (Comments) Value History N/A 0 EKG N/A 0 Age N/A 0 Risk Factors N/A 0 Troponin N/A 0 Total 0 I personally scribed for ROBERT AQUINO MD ([email or web address]) on 05/28/24 at 10:41. Electronically submitted by Inocencia Jenkins ([email or web address]). ROBERT AQUINO MD May 28, 2024 10:41
[2024-05-28 10:47] LABS: Basophils # (auto) 0 10 ^3/uL (0-0.2); Basophils % (auto) 0.3 % (0.0-2.0); Eosinophils # (auto) 0 10 ^3/uL (0-0.8); Eosinophils % (auto) 0.4 % (0.0-7.0); Hematocrit 44.9 % (36.0-46.0); Hemoglobin 15.2 g/dL (12.2-16.2); Lymphocytes # (auto) 0.8 10 ^3/uL (0.4-5.4); Mean Corpuscular Hemoglobin 29.2 pg (28.0-32.0); Mean Corpuscular Hgb Conc. 33.9 g/dL (32.0-36.0); Mean Corpuscular Volume 86.2 fL (80.0-100.0); Monocytes # (auto) 0.6 10 ^3/uL (0-1.3); Monocytes % (auto) 10.1 % (0.0-12.0); Neutrophils # (auto) 4.8 10 ^3/uL (1.6-8.6); Neutrophils % (auto) 77.2 % (37.0-80.0); Platelet Count (auto) 237 10^3/uL (140-450); Red Blood Cells 5.21 10^6/uL (4.0-5.20); Red Cell Distribution Width 15.6 % (11.8-14.3); White Blood Cell 6.3 10^3/uL (4.4-10.8)
[2024-05-28 10:59] LABS: Chloride 107 mmol/L (98-107); Sodium 142 mmol/L (136-145)
[2024-05-28 11:00] LABS: Anion Gap 7 (5-15); Carbon Dioxide 28 mmol/L (20-31)
[2024-05-28 11:01] LABS: Calcium 9.6 mg/dL (8.7-10.4)
--- NOTE | 2024-05-28 11:03 | DVH ---
CLINICAL INFORMATION: 78 years old, Female; pain and constipation. TECHNIQUE: Axial CT images of the abdomen and pelvis were obtained without IV contrast. Coronal and s agittal reformatted images were obtained, reviewed, and stored. Evaluation of the parenchymal organs is limited without IV contrast. Evaluation of the bowel and mesentery is limited without oral contras t. All CT scans at this medical facility are performed using dose modulation techniques as appropriat e to a performed exam including the following: Automated exposure control was utilized; adjustment of the MA and/or KV according to patient size; and use of iterative reconstruction technique. CTDIvol = 5.25 mGy DLP = 268.79 mGy-cm COMPARISON: CT CT AB PEL WO CON-NO ORAL OR IV on DOS: 12/27/22, CT CT AB PEL WO CON-NO ORAL OR IV on DOS: 05/30/22. Contrast enhanced CT dated 05/04/2024. FINDINGS: Lung bases: Lung bases are clear. Moderate hiatal hernia with wall thickening of the herniated portio ns of the stomach Liver: Grossly unremarkable in its noncontrast enhanced appearance. No abnormal density or focal lesi on identified. Biliary: Cholecystectomy. Common bile duct is mildly prominent, measuring up to 1 cm in diameter, whi ch may be seen after cholecystectomy due to reservoir effect. Spleen: Unremarkable. Pancreas: Grossly unremarkable in its noncontrast enhanced appearance. Adrenal glands: Unremarkable. No mass. Kidneys: No hydronephrosis. Small bilateral nonobstructing renal calculi. No obstructing calculi visu alized. Aorta/Vascular: Moderate atherosclerotic calcification. No abdominal aortic aneurysm. Retroperitoneum: No mass or lymphadenopathy. Bowel/mesentery: No small bowel obstruction. Surgical anastomosis in a loop of small bowel in the rig ht anterior abdomen. No free air or free fluid. Appendix is not visualized. Large amount of stool thr oughout the colon. Surgical anastomosis of the rectum. Pelvic organs: Uterus is surgically absent. Bladder: Bladder is underdistended and suboptimally evaluated. Abdominal wall: No mass or hernia. Bones: Minimal retrolisthesis of L2 on L3 and L3 on L4. Mild grade 1 anterolisthesis of L4 on L5. IMPRESSION: 1. Large amount of stool throughout the colon suggesting constipation. 2. No small bowel obstruction. 3. Moderate hiatal hernia with wall thickening of the herniated portions of the stomach 4. Postsurgical changes of prior cholecystectomy. Mild prominence of the common bile duct may be see n after cholecystectomy due to reservoir effect, appears unchanged.
[2024-05-28 11:05] LABS: BUN/Creatinine Ratio 16.2 (10.0-20.0); Blood Urea Nitrogen 12 mg/dL (9-23); Glucose 87 mg/dL (74-106)
[2024-05-28] MEDS ORDERED: ONDANSETRON HCL 4 MG/2 ML VIAL IV PRN (15:00)
[2024-05-28] MEDS ORDERED: ACETAMINOPHEN 325 MG TAB PO PRN (15:00)
[2024-05-28] MEDS ORDERED: HYDROcodone-ACET 5/325MG TAB PO PRN (15:00)
[2024-05-28] MEDS ORDERED: hydrALAZINE HCL 20 MG/ML VL IV PRN (15:00)
--- NOTE | 2024-05-28 16:23 | DVHHP2 ---
History of Present Illness Reason for Visit: Acute abdominal pain History of Present Illness The patient is a 78-year-old female with past medical history of colorectal cancer and hypertension who presented to [facility] ED with complaint of constipation. Patient reports she has been experiencing constipation associated with diffuse abdominal pain, back pain, rating 7/10 numeric scale, chills for the past 3 days, getting worse that prompted this visit. Patient was seen and evaluated in the ED, laboratory data shows WBC 6.3, platelets 237, sodium 142, potassium 4.1, BUN 12, creatinine 0.74, GFR 82, glucose 87, blood pressure 176/76 trending down to 140/87. Abdomen/pelvis CT revealing large amount of stool throughout the colon suggesting constipation, no small bowel obstruction. Patient was given Fleet enema, IV hydralazine 10 mg x 1, please see medication orders section in the computer. On my assessment, patient denied chest pain, no headache, no dizziness, no shortness of breath, no nausea, no vomiting, no fever, no chills. Patient was admitted for further evaluation and medical management. Past Medical History Colorectal Cancer, HTN Past Surgical History Cholecystectomy, Hysterectomy Family History Reviewed, noncontributory to the management of this case. Past Social History The patient lives at home, denies smoking, alcohol or illicit drugs abuse. Review of Systems Constitutional: Yes: Chills, Weakness; No: Fever, Sweats, Malaise, Other Eyes: No: Pain, Vision change, Conjunctivae inflammation, Eyelid inflammation, Other, Redness ENT: No: Ear pain, Ear discharge, Nose pain, Nose discharge, Nose congestion, Mouth pain, Mouth swelling, Throat pain, Throat swelling, Other Respiratory: No: Cough, Dry, Shortness of breath, SOB with excertion, Wheezing, Hemoptysis, Pleuritic Pain, Sputum, Wheezing, Other Cardiovascular: No: Chest Pain, Palpitations, Orthopnea, Paroxysmal Noc. Dyspnea, Edema, Lt Headedness, Other Gastrointestinal: Abdominal Pain; No: Nausea, Vomiting, Diarrhea, Constipation, Melena, Hematochezia, Other Genitourinary: No Dysuria, No Frequency, No Incontinence, No Hematuria, No Retention, No Other Musculoskeletal: back pain; No: other, neck pain, shoulder pain, arm pain, hand pain, leg pain, foot pain Skin: No: Rash, Lesions, Jaundice, Bruising, Other Neurological: No: Weakness, Numbness, Incoordination, Change in speech, Confusion, Seizures, Other Allergies: Coded Allergies: NO KNOWN ALLERGIES (Unverified , 05/30/22) Medications Current Medications Medications Dose Ordered Sig/Jayy Route Start Time Stop Time Status Last Admin Dose Admin Hydralazine HCl 10 mg Q6HP PRN IV 05/28/24 15:00 Losartan Potassium 25 mg DAILY PO 05/29/24 10:00 Sodium Chloride 10 ml Q8HR IV 05/28/24 22:00 Acetaminophen/ Hydrocodone Bitart 1 tab Q4HP PRN PO 05/28/24 15:00 Ondansetron HCl 4 mg Q4HP PRN IV 05/28/24 15:00 Docusate Sodium 100 mg BIDPRN PRN PO 05/28/24 15:00 Acetaminophen 650 mg Q6HP PRN PO 05/28/24 15:00 Docusate Sodium 100 mg BID PO 05/28/24 22:00 Exam Vital Signs Vital Signs Date Time Temp Pulse Resp B/P (MAP) Pulse Ox O2 Delivery O2 Flow Rate FiO2 05/28/24 09:58 97.0 81 18 176/76 (109) 97 97.0 General Appearance: Alert, Oriented X3, Cooperative, No acute distress HEENT: Atraumatic, PERRLA, EOMI, Mucous membr. moist/pink Respiratory: Clear to auscultation, Normal air movement Cardiovascular: Regular rate, Normal S1, Normal S2, No murmurs Abdominal: Normal bowel sounds, Soft, No hepatospenomegaly, No masses, Other (Reports tenderness) Extremities: No clubbing, No cyanosis, No edema, Normal pulses, No tenderness/swelling Skin: No rashes, No breakdown, No significant lesion Neuro: Normal speech, Normal tone, Sensation intact, Cranial nerves 3-12 NL, Reflexes 2+, Other (Generalized weakness) Psych/Mental Status: Mental status NL, Mood NL Labs/Xrays Labs Test 05/28/24 10:38 05/28/24 09:11 Range/Units White Blood Count 6.3 4.4-10.8 10^3/uL Red Blood Count 5.21 H 4.0-5.20 10^6/uL Hemoglobin 15.2 12.2-16.2 g/dL Hematocrit 44.9 36.0-46.0 % Mean Corpuscular Volume 86.2 80.0-100.0 fL Mean Corpuscular Hemoglobin 29.2 28.0-32.0 pg Mean Corpuscular Hemoglobin Concent 33.9 32.0-36.0 g/dL Red Cell Distribution Width 15.6 H 11.8-14.3 % Platelet Count 237 140-450 10^3/uL Mean Platelet Volume 8.4 6.9-10.8 fL Neutrophils (%) (Auto) 77.2 37.0-80.0 % Lymphocytes (%) (Auto) 12.0 10.0-50.0 % Monocytes (%) (Auto) 10.1 0.0-12.0 % Eosinophils (%) (Auto) 0.4 0.0-7.0 % Basophils (%) (Auto) 0.3 0.0-2.0 % Neutrophils # (Auto) 4.8 1.6-8.6 10 ^3/uL Lymphocytes # (Auto) 0.8 0.4-5.4 10 ^3/uL Monocytes # (Auto) 0.6 0-1.3 10 ^3/uL Eosinophils # (Auto) 0 0-0.8 10 ^3/uL Basophils # (Auto) 0 0-0.2 10 ^3/uL Nucleated Red Blood Cells 0.0 % Sodium Level 142 136-145 mmol/L Potassium Level 4.0 3.5-5.1 mmol/L Chloride Level 107 98-107 mmol/L Carbon Dioxide Level 28 20-31 mmol/L Anion Gap 7 5-15 Blood Urea Nitrogen 12 9-23 mg/dL Creatinine 0.74 0.550-1.02 mg/dL Glomerular Filtration Rate Calc 82 >90 mL/min BUN/Creatinine Ratio 16.2 10.0-20.0 Serum Glucose 87 74-106 mg/dL Calcium Level 9.6 8.7-10.4 mg/dL Urine Color Yellow Yellow Urine Clarity Clear Clear Urine pH 5.5 5.0-9.0 Urine Specific [place] 1.017 1.001-1.035 Urine Protein Negative Negative Urine Ketones Negative Negative Urine Blood 1+ H Negative /uL Urine Nitrite Negative Negative Urine Bilirubin Negative Negative Urine Urobilinogen Normal Negative mg/dL Urine Leukocyte Esterase Negative Negative /uL Urine RBC 5 0 - 4 /hpf Urine Microscopic WBC 3 0-5 /HPF Urine Squamous Epithelial Cells Few <5 /hpf Urine Bacteria None seen None Seen /hpf Urine Glucose Normal Normal mg/dL PATIENT: RANDELL GUILLORY ACCT: [id number] UNIT: [id number] : 1945 LOC: ER ROOM / BED: / AGE / SEX: 78 / F ADM STATUS: REG ER SERVICE 1018 ORDERING PHYSICIAN: ROBERT AQUINO MD PROCEDURE(s): ABPL - CT AB PEL WO CON-NO ORAL OR IV REASON: pain and constipation ORDER NUMBER(s): [id number], ACCESSION NUMBER(s): [id number] CLINICAL INFORMATION: 78 years old, Female; pain and constipation. TECHNIQUE: Axial CT images of the abdomen and pelvis were obtained without IV contrast. Coronal and sagittal reformatted images were obtained, reviewed, and stored. Evaluation of the parenchymal organs is limited without IV contrast. Evaluation of the bowel and mesentery is limited without oral contrast. All CT scans at this medical facility are performed using dose modulation techniques as appropriate to a performed exam including the following: Automated exposure control was utilized; adjustment of the MA and/or KV according to patient size; and use of iterative reconstruction technique. CTDIvol = 5.25 mGy DLP = 268.79 mGy-cm COMPARISON: CT CT AB PEL WO CON-NO ORAL OR IV on DOS: 12/27/22, CT CT AB PEL WO CON-NO ORAL OR IV on DOS: 05/30/22. Contrast enhanced CT dated 05/04/2024. FINDINGS: Lung bases: Lung bases are clear. Moderate hiatal hernia with wall thickening of the herniated portions of the stomach Liver: Grossly unremarkable in its noncontrast enhanced appearance. No abnormal density or focal lesion identified. Biliary: Cholecystectomy. Common bile duct is mildly prominent, measuring up to 1 cm in diameter, which may be seen after cholecystectomy due to reservoir effect. Spleen: Unremarkable. Pancreas: Grossly unremarkable in its noncontrast enhanced appearance. Adrenal glands: Unremarkable. No mass. Kidneys: No hydronephrosis. Small bilateral nonobstructing renal calculi. No obstructing calculi visualized. Aorta/Vascular: Moderate atherosclerotic calcification. No abdominal aortic aneurysm. Retroperitoneum: No mass or lymphadenopathy. Bowel/mesentery: No small bowel obstruction. Surgical anastomosis in a loop of small bowel in the right anterior abdomen. No free air or free fluid. Appendix is not visualized. Large amount of stool throughout the colon. Surgical anastomosis of the rectum. Pelvic organs: Uterus is surgically absent. Bladder: Bladder is underdistended and suboptimally evaluated. Abdominal wall: No mass or hernia. Bones: Minimal retrolisthesis of L2 on L3 and L3 on L4. Mild grade 1 anterolisthesis of L4 on L5. IMPRESSION: 1. Large amount of stool throughout the colon suggesting constipation. 2. No small bowel obstruction. 3. Moderate hiatal hernia with wall thickening of the herniated portions of the stomach 4. Postsurgical changes of prior cholecystectomy. Mild prominence of the common bile duct may be seen after cholecystectomy due to reservoir effect, appears unchanged. Assessment/Plan Assessment/Plan Acute abdominal pain Fecal impaction Hypertension Generalized weakness Plan 1. Admit to med surge unit 2. Breathing treatment 3. Pain control management 4. Management of fluids and electrolytes 5. Consultation for hospitalist 6. Diagnostic tests abdomen/pelvis CT 7. DVT prophylaxis on SCDs 8. Repeat labs CBC, CMP in a.m. 9. Continue with current medical management 10. Treatment plan discussed with patient and RN. Patient verbalized understanding. Plan discussed with: Patient, Other (RN) My Orders Orders - MOSHE SIMMS DNP Procedure Category Date Status Time Hydralazine Injection PHA 05/28/24 In Process (Apresoline Inject 15:00 Losartan Tablet PHA 05/29/24 In Process (Cozaar Tablet) 10:00 Allergies NOÉ 05/28/24 In Process 14:46 Code Status CODE 05/28/24 Transmitted 14:46 Sodium Chloride Lock PHA 05/28/24 In Process (Saline Lock Ns) 22:00 Oxygen Per Hour RT 05/28/24 Transmitted 14:46 Hydrocodone-Acet PHA 05/28/24 In Process 5/325mg Tab ([place] 15:00 Ondansetron Hcl PHA 05/28/24 In Process (Zofran) 15:00 Docusate Sodium PHA 05/28/24 In Process Capsule (Colace 15:00 Complete Blood Count LAB 05/29/24 Verified 04:00 Comprehensive LAB 05/29/24 Verified Metabolic Panel 04:00 Cardiac DIET 05/28/24 Transmitted Diet-2gna,Lofat,Lochol Dinner Condition: Serious NOÉ 05/28/24 In Process 14:46 Acetaminophen Tablet PHA 05/28/24 In Process (Tylenol Tablet) 15:00 Bedrest With Bathroom [facility] 05/28/24 In Process Privileg 14:46 Sequential [facility] 05/28/24 In Process Compression Device Docusate Sodium [facility] 05/28/24 In Process Capsule (Colace 22:00 Admit ADMIT 05/28/24 Transmitted 16:22 Nitroglycerin [facility] 05/28/24 Transmitted Sublingual (Ntrostat 16:30 Morphine Sulfate [facility] 05/28/24 Transmitted Injection 16:30 Notify Md Of Changes [facility] 05/28/24 Transmitted From Base 16:22 Licensed Insurance Agent For [facility] 05/28/24 Transmitted 24 Hours 16:22 Emergency Dysrhythmia [facility] 05/28/24 Transmitted Protocol 16:22 Oxygen By Nasal RT 05/28/24 Transmitted Cannula 16:22 Problem List: (1) Acute abdominal pain (2) Fecal impaction (3) Hypertension (4) Generalized weakness Date of Service: May 28, 2024 Billing Provider: MOSHE SIMMS DNP Common Visit Codes: [id number] INP/OBS CARE (HIGH) MOSHE SIMMS DNP May 28, 2024 16:23
[2024-05-28] MEDS ORDERED: NITROGLYCERIN 0.4 MG SL TAB SL PRN (16:30)
[2024-05-28] MEDS ORDERED: MORPHINE SULFATE INJ 2 MG/ml SYRG IV PRN (16:30)
[2024-05-28] MEDS: FLEET ENEMA(ADULT) 135 ML PR ONE (21:23)
[2024-05-28] MEDS: SODIUM CHLOR 0.9% PF (SALINE LOCK) 10ML VIAL/SYR IV SCH (21:26)
[2024-05-28] MEDS: DOCUSATE SOD 100 MG CAP PO SCH (21:46)
[2024-05-28 21:47] VITALS: PULSE 87; RESP 13; O2SAT 97
[2024-05-29] VITALS (8 sets, daily range): BP systolic 115–138; BP diastolic 55–65; PULSE 63–101; RESP 16–20; TEMP 97.6–98.2; O2SAT 94–98
[2024-05-29] MEDS: DOCUSATE SOD 100 MG CAP PO PRN (04:51)
[2024-05-29 07:09] LABS: Alanine Aminotransferase 18 U/L (7-40); Albumin 4.1 g/dL (3.2-4.8); Alkaline Phosphatase 60 U/L (46-116); Anion Gap 9 (5-15); Aspartate Aminotransferase 19 U/L (13-40); BUN/Creatinine Ratio 21.8 (10.0-20.0); Blood Urea Nitrogen 12 mg/dL (9-23); Carbon Dioxide 24 mmol/L (20-31); Chloride 106 mmol/L (98-107); Glucose 82 mg/dL (74-106); Potassium 3.4 mmol/L (3.5-5.1); Sodium 139 mmol/L (136-145)
[2024-05-29 07:11] LABS: Bilirubin, Total 1.9 mg/dL (0.2-1.0)
[2024-05-29 07:12] LABS: Basophils # (auto) 0 10 ^3/uL (0-0.2); Basophils % (auto) 0.3 % (0.0-2.0); Eosinophils # (auto) 0.1 10 ^3/uL (0-0.8); Eosinophils % (auto) 1.1 % (0.0-7.0); Hematocrit 42.1 % (36.0-46.0); Hemoglobin 14.1 g/dL (12.2-16.2); Lymphocytes # (auto) 0.9 10 ^3/uL (0.4-5.4); Lymphocytes % (auto) 13.7 % (10.0-50.0); Mean Corpuscular Hemoglobin 28.8 pg (28.0-32.0); Mean Corpuscular Hgb Conc. 33.6 g/dL (32.0-36.0); Mean Corpuscular Volume 85.8 fL (80.0-100.0); Monocytes # (auto) 0.7 10 ^3/uL (0-1.3); Monocytes % (auto) 10.9 % (0.0-12.0); Neutrophils # (auto) 4.9 10 ^3/uL (1.6-8.6); Platelet Count (auto) 214 10^3/uL (140-450); Red Blood Cells 4.91 10^6/uL (4.0-5.20); Red Cell Distribution Width 15.7 % (11.8-14.3); White Blood Cell 6.6 10^3/uL (4.4-10.8)
[2024-05-29 07:32] LABS: Total Protein 6.3 g/dL (5.7-8.2)
[2024-05-29] MEDS: LOSARTAN POTASSIUM 25 MG TAB PO SCH (09:19)
--- NOTE | 2024-05-29 11:20 | DVHPN2 ---
Progress Note Date Seen: May 29, 2024 Medical Necessity Reason Pt with a Central, PICC or Fol: No Subjective Patient reports: No new complaints Review of Systems: HEENT:Normal, CVS:Normal, RESPIRATORY:Normal, GI:Normal, :Normal, MSK:Normal, NEURO:Normal Objective vital signs Vital Sign Date Time Temp Pulse Resp B/P (MAP) Pulse Ox O2 Delivery O2 Flow Rate FiO2 05/29/24 09:19 117/56 05/29/24 08:55 98.1 86 16 96 98.1 05/29/24 08:00 Room Air* 0 21 Total Intake and Output 05/28/24 05/28/24 05/29/24 15:00 23:00 07:00 Intake Total 0 ml Output Total 0 ml Balance 0 ml medications Current Medications Medications Dose Ordered Sig/Jayy Route Start Time Stop Time Status Last Admin Dose Admin Hydralazine HCl 10 mg Q6HP PRN IV 05/28/24 15:00 Losartan Potassium 25 mg DAILY PO 05/29/24 10:00 05/29/24 09:19 25 MG Sodium Chloride 10 ml Q8HR IV 05/28/24 22:00 05/28/24 21:26 10 ML Acetaminophen/ Hydrocodone Bitart 1 tab Q4HP PRN PO 05/28/24 15:00 Ondansetron HCl 4 mg Q4HP PRN IV 05/28/24 15:00 Docusate Sodium 100 mg BIDPRN PRN PO 05/28/24 15:00 05/29/24 04:51 100 MG Acetaminophen 650 mg Q6HP PRN PO 05/28/24 15:00 Docusate Sodium 100 mg BID PO 05/28/24 22:00 05/29/24 09:19 100 MG Nitroglycerin 0.4 mg Q5MINP PRN SL 05/28/24 16:30 Morphine Sulfate 2 mg Q30M PRN IV 05/28/24 16:30 Examination: GENERAL:Normal, HEENT:Normal, NECK:Normal, LUNGS:Normal, CVS:Normal, ABDOMEN:Normal, MSK:Normal, SKIN:Normal, NEURO:Normal, :Normal laboratory and microbiology Laboratory Tests 05/29/24 06:34 Test 05/29/24 06:34 Range/Units Serum Glucose 82 74-106 mg/dL Problem List/Assessment/Plan Problem List/Assessment/Plan #1 fecal impaction: bowel regimen #2 hypokalemia: replace #3 hiatal hernia #4 h/o rectal cancer #5 htn advance care planning- full code-time spent 18mins Plan discussed with: Patient, Daughter Date of Service: May 29, 2024 Billing Provider: RAISA FERNANDEZ MD Common Visit Codes: [id number] INP/OBS CARE(HIGH) Secondary Visit Codes: [id number] CARE PLAN 30 MINUTES RAISA FERNANDEZ MD May 29, 2024 11:20
[2024-05-29] MEDS: POLYETHYLENE GLYCOL 17 GM PWDR PO ONE (11:51)
[2024-05-29] MEDS: FLEET ENEMA(ADULT) 135 ML PR ONE (11:52)
[2024-05-29] MEDS: POTASSIUM CHL 20 Meq TABLET PO ONE (11:52)
[2024-05-29] MEDS: LACTULOSE 20Gm/30ML SOLN PO ONE (11:52)
[2024-05-29] MEDS: PANTOPRAZOLE 40 MG TAB PO ONE (11:52)
[2024-05-30 01:00] VITALS: BP 100/69; PULSE 88; RESP 18; TEMP 98.2; O2SAT 95
[2024-05-30 05:00] VITALS: BP 98/56; PULSE 82; RESP 18; TEMP 97.9; O2SAT 94
[2024-05-30] MEDS: PANTOPRAZOLE 40 MG TAB PO SCH (05:12)
[2024-05-30 06:17] LABS: Basophils # (auto) 0 10 ^3/uL (0-0.2); Basophils % (auto) 0.5 % (0.0-2.0); Eosinophils # (auto) 0.1 10 ^3/uL (0-0.8); Eosinophils % (auto) 2.7 % (0.0-7.0); Hematocrit 38.8 % (36.0-46.0); Lymphocytes # (auto) 0.7 10 ^3/uL (0.4-5.4); Lymphocytes % (auto) 17.3 % (10.0-50.0); Mean Corpuscular Hemoglobin 28.7 pg (28.0-32.0); Mean Corpuscular Hgb Conc. 33.5 g/dL (32.0-36.0); Mean Corpuscular Volume 85.7 fL (80.0-100.0); Monocytes # (auto) 0.6 10 ^3/uL (0-1.3); Monocytes % (auto) 12.9 % (0.0-12.0); Neutrophils # (auto) 2.9 10 ^3/uL (1.6-8.6); Neutrophils % (auto) 66.6 % (37.0-80.0); Nucleated Red Blood Cells % 0.1 %; Platelet Count (auto) 203 10^3/uL (140-450); Red Blood Cells 4.52 10^6/uL (4.0-5.20); Red Cell Distribution Width 15.7 % (11.8-14.3); White Blood Cell 4.3 10^3/uL (4.4-10.8)
[2024-05-30 06:39] LABS: Potassium 3.6 mmol/L (3.5-5.1); Sodium 140 mmol/L (136-145)
[2024-05-30 06:40] LABS: Anion Gap 6 (5-15); Calcium 8.9 mg/dL (8.7-10.4); Carbon Dioxide 26 mmol/L (20-31)
[2024-05-30 06:45] LABS: BUN/Creatinine Ratio 15.6 (10.0-20.0); Blood Urea Nitrogen 10 mg/dL (9-23); Glucose 87 mg/dL (74-106)
[2024-05-30 06:47] LABS: Chloride 108 mmol/L (98-107)
[2024-05-30 08:00] VITALS: RESP 18; O2SAT 96
[2024-05-30 09:00] VITALS: BP_SYST 102; BP_SYST 98; BP_DIAS 48; BP_DIAS 53; PULSE 64; PULSE 84; RESP 15; RESP 17; TEMP 97.7; TEMP 98; O2SAT 95; O2SAT 96
[2024-05-30] MEDS: POLYETHYLENE GLYCOL 17 GM PWDR PO SCH (10:00)
[2024-05-30 13:00] VITALS: BP 98/48; PULSE 80; RESP 17; TEMP 98; O2SAT 96
--- NOTE | 2024-05-30 14:45 | DVHDS2 ---
Discharge Summary Date of Admission May 28, 2024 at 16:22 Date of Discharge: May 30, 2024 Labs/Diagnostic Data: Laboratory Results Test 05/30/24 05:28 05/29/24 06:34 05/28/24 09:11 White Blood Count 4.3 10^3/uL (4.4-10.8) Red Blood Count 4.52 10^6/uL (4.0-5.20) Hemoglobin 13.0 g/dL (12.2-16.2) Hematocrit 38.8 % (36.0-46.0) Mean Corpuscular Volume 85.7 fL (80.0-100.0) Mean Corpuscular Hemoglobin 28.7 pg (28.0-32.0) Mean Corpuscular Hemoglobin Concent 33.5 g/dL (32.0-36.0) Red Cell Distribution Width 15.7 % (11.8-14.3) Platelet Count 203 10^3/uL (140-450) Mean Platelet Volume 8.6 fL (6.9-10.8) Neutrophils (%) (Auto) 66.6 % (37.0-80.0) Lymphocytes (%) (Auto) 17.3 % (10.0-50.0) Monocytes (%) (Auto) 12.9 % (0.0-12.0) Eosinophils (%) (Auto) 2.7 % (0.0-7.0) Basophils (%) (Auto) 0.5 % (0.0-2.0) Neutrophils # (Auto) 2.9 10 ^3/uL (1.6-8.6) Lymphocytes # (Auto) 0.7 10 ^3/uL (0.4-5.4) Monocytes # (Auto) 0.6 10 ^3/uL (0-1.3) Eosinophils # (Auto) 0.1 10 ^3/uL (0-0.8) Basophils # (Auto) 0 10 ^3/uL (0-0.2) Nucleated Red Blood Cells 0.1 % Sodium Level 140 mmol/L (136-145) Potassium Level 3.6 mmol/L (3.5-5.1) Chloride Level 108 mmol/L (98-107) Carbon Dioxide Level 26 mmol/L (20-31) Anion Gap 6 (5-15) Blood Urea Nitrogen 10 mg/dL (9-23) Creatinine 0.64 mg/dL (0.550-1.02) Glomerular Filtration Rate Calc 90 mL/min (>90) BUN/Creatinine Ratio 15.6 (10.0-20.0) Serum Glucose 87 mg/dL (74-106) Calcium Level 8.9 mg/dL (8.7-10.4) Total Bilirubin 1.9 mg/dL (0.2-1.0) Aspartate Amino Transferase (AST) 19 U/L (13-40) Alanine Aminotransferase (ALT) 18 U/L (7-40) Alkaline Phosphatase 60 U/L (46-116) Total Protein 6.3 g/dL (5.7-8.2) Albumin 4.1 g/dL (3.2-4.8) Urine Color Yellow (Yellow) Urine Clarity Clear (Clear) Urine pH 5.5 (5.0-9.0) Urine Specific [place] 1.017 (1.001-1.035) Urine Protein Negative (Negative) Urine Ketones Negative (Negative) Urine Blood 1+ /uL (Negative) Urine Nitrite Negative (Negative) Urine Bilirubin Negative (Negative) Urine Urobilinogen Normal mg/dL (Negative) Urine Leukocyte Esterase Negative /uL (Negative) Urine RBC 5 /hpf (0 - 4) Urine Microscopic WBC 3 /HPF (0-5) Urine Squamous Epithelial Cells Few /hpf (<5) Urine Bacteria None seen /hpf (None Seen) Urine Glucose Normal mg/dL (Normal) Other Laboratory Tests 05/30/24 05:28 Brief Hx & Hospital Course: SEE DICTATED NOTE Condition at Discharge: Good Final Diagnosis/Problems List FECAL IMPACTION Discharge Disposition: Home Discharge Instruct/Medications Diet: Cardiac 2g Na,low cholest Activity: No Restrictions, As Tolerated Follow Up/Referral: [facility] PCP IN 1 WK Medications: RESUME HOME MEDS SCRIPT TO PHARMACY Discharge Statement: "Patient was advised to return to the ER or call 911 if any headaches, dizziness, shortness of breath, chest pain, abdominal pain, bleeding, fevers, or worsening of medical condition. Patient was counseled about treatment plan, medications, possible side effects, patientverbalized understanding. All questions were answered to the best of my ability. This discharge took greater then 30 minutes in planning, reviewing documentation, counseling the patient, and discussing with other team members." ASSESSMENT ASSESSMENT Assessment FECAL IMPACTION Date of Service: May 30, 2024 Billing Provider: RAISA FERNANDEZ MD Common Visit Codes: 19618-JDS/OBS DISCH DAY >30min RAISA FERNANDEZ MD May 30, 2024 14:45
[2024-05-30] MEDS ORDERED: LACT10SO3 PO (14:46)
[2024-05-30] MEDS ORDERED: PANT40TA2 PO (14:53)
--- NOTE | 2024-05-30 16:12 | DVHDS ---
DATE OF DISCHARGE: 05/30/2024 The patient is a 78-year-old lady who was admitted with complaints of lower abdominal pain and constipation and has history of previous rectal cancer and hypertension. HOSPITAL COURSE: The patient had a CT of abdomen and pelvis that showed evidence of large amount of stool throughout the colon. The patient also had a moderate hiatal hernia. The patient was placed on a bowel regimen and since had had bowel activity. The patient will now be discharged home to resume her home medications as well as to be on Protonix 40 mg daily along with lactulose p.r.n. She will follow up with her primary in one week. FINAL DIAGNOSES: * Fecal impaction with abdominal pain. * Hypokalemia. * Hiatal hernia. * History of rectal cancer. * Hypertension. Time spent in discharge planning and review of plan with the patient and family at bedside was 38 minutes. MD BIA Jolley/NIKOLE TID: [id number] RECEIPT: [id number]
[2024-05-30 17:00] VITALS: BP 110/55; PULSE 70; RESP 17; TEMP 97.9; O2SAT 96
== END 2024-05-30 18:00 | disposition home or self-care (01) | DRG 390 ==
LOC: ER 09:39 → OVERFLOW 16:22 → EAST 05-29 04:10
PROVIDERS: ADMIT Internal Medicine; ATTEND Internal Medicine
DX: K56.41 Fecal impaction (principal); I10 Essential (primary) hypertension; K44.9 Diaphragmatic hernia without obstruction or gangrene; E87.6 Hypokalemia; M54.9 Dorsalgia, unspecified; Z85.048 Personal history of other malignant neoplasm of rectum, rectosigmoid junction, and anus; Z79.899 Other long term (current) drug therapy; Z90.49 Acquired absence of other specified parts of digestive tract; Z90.710 Acquired absence of both cervix and uterus
CPT/HCPCS: 36415; 74176; 80048; 80053; 81001; 85025; 87081; G0378

== ENCOUNTER 2024-08-19 08:32 | Outpatient (CLI) | payer MEDICARE, MEDICAID ==
[~2024-08-19 08:32] MED LIST changes: -CEFD300C2 PO; +LACT10SO3 PO; -LEVO500T31 PO; -METR500T PO; -NITR-87 PO; +PANT40TA2 PO
[2024-08-19 08:51] LABS: Urine Bacteria None Seen /hpf (None Seen)
[2024-08-19 09:09] LABS: Basophils # (auto) 0 10 ^3/uL (0-0.2); Eosinophils # (auto) 0.1 10 ^3/uL (0-0.8); Eosinophils % (auto) 1.4 % (0.0-7.0); Hematocrit 43.6 % (36.0-46.0); Hemoglobin 14.4 g/dL (12.2-16.2); Lymphocytes # (auto) 0.7 10 ^3/uL (0.4-5.4); Lymphocytes % (auto) 20.2 % (10.0-50.0); Mean Corpuscular Hemoglobin 27.9 pg (28.0-32.0); Mean Corpuscular Hgb Conc. 33.1 g/dL (32.0-36.0); Mean Corpuscular Volume 84.4 fL (80.0-100.0); Monocytes # (auto) 0.5 10 ^3/uL (0-1.3); Monocytes % (auto) 13.5 % (0.0-12.0); Neutrophils # (auto) 2.2 10 ^3/uL (1.6-8.6); Neutrophils % (auto) 63.9 % (37.0-80.0); Nucleated Red Blood Cells % 0.1 %; Platelet Count (auto) 232 10^3/uL (140-450); Red Blood Cells 5.17 10^6/uL (4.0-5.20); White Blood Cell 3.5 10^3/uL (4.4-10.8)
[2024-08-19 09:10] LABS: Urine Blood Negative /uL (Negative); Urine Clarity Clear (Clear); Urine Color Light-Yellow (Yellow); Urine Protein, UAD Negative (Negative); Urine Specific Gravity 1.014 (1.001-1.035); Urine Squamous Epithelial Cell None Seen /hpf (<5); Urine Urobilinogen Normal (Negative); Urine WBC 1 /HPF (0-5); Urine pH 6.5 (5.0-9.0)
[2024-08-19 09:35] LABS: Alanine Aminotransferase 13 U/L (7-40); Albumin 4.1 g/dL (3.2-4.8); Alkaline Phosphatase 57 U/L (46-116); Anion Gap 8 (5-15); Aspartate Aminotransferase 20 U/L (13-40); BUN/Creatinine Ratio 15.1 (10.0-20.0); Blood Urea Nitrogen 11 mg/dL (9-23); Carbon Dioxide 28 mmol/L (20-31); Cholesterol 169 mg/dL (< 200); Glucose 88 mg/dL (74-106); LDL Cholesterol 96 mg/dL (< 100); Potassium 4.6 mmol/L (3.5-5.1); Total Protein 6.4 g/dL (5.7-8.2); Triglycerides 134 mg/dL (< 150)
[2024-08-19 09:36] LABS: Bilirubin, Total 1.2 mg/dL (0.2-1.0); Creatinine, Urine 68.28 mg/dL (30.0-125.0)
[2024-08-19 09:37] LABS: Chloride 109 mmol/L (98-107); HDL Cholesterol 62 mg/dL (40-59); Sodium 145 mmol/L (136-145)
== END 2024-08-19 17:00 | disposition home or self-care (01) ==
LOC: LAB 08:32
PROVIDERS: ATTEND Internal Medicine
DX: I10 Essential (primary) hypertension (principal); R10.9 Unspecified abdominal pain; Z00.01 Encounter for general adult medical examination with abnormal findings; Z85.048 Personal history of other malignant neoplasm of rectum, rectosigmoid junction, and anus; Z79.899 Other long term (current) drug therapy
CPT/HCPCS: 36415; 80053; 80061; 81001; 82043; 82306; 82570; 82607; 83036; 84443; 85025

== ENCOUNTER → 2024-09-27 | Outpatient (CLI) | payer MEDICARE, MEDICAID ==
[2024-09-27 08:39] LABS: Sodium 143 mmol/L (136-145)
[2024-09-27 08:41] LABS: Anion Gap 7 (5-15); Calcium 10.3 mg/dL (8.7-10.4); Carbon Dioxide 29 mmol/L (20-31)
[2024-09-27 08:42] LABS: Hematocrit 45.7 % (36.0-46.0); Hemoglobin 15.2 g/dL (12.2-16.2); Mean Corpuscular Hemoglobin 28.1 pg (28.0-32.0); Mean Corpuscular Volume 84.3 fL (80.0-100.0); Nucleated Red Blood Cells % 0.0 %
[2024-09-27 08:46] LABS: BUN/Creatinine Ratio 15.6 (10.0-20.0); Blood Urea Nitrogen 12 mg/dL (9-23); Glucose 91 mg/dL (74-106)
[2024-09-27 08:49] LABS: Chloride 107 mmol/L (98-107); Potassium 5.3 mmol/L (3.5-5.1)
== END | disposition home or self-care (01) ==
LOC: LAB 07:25
PROVIDERS: ATTEND Internal Medicine
DX: C20 Malignant neoplasm of rectum (principal); I10 Essential (primary) hypertension; R73.03 Prediabetes
CPT/HCPCS: 36415; 80048; 85025; 85652

== ENCOUNTER 2024-09-30 21:11 | Emergency (ER) | payer MEDICARE, MEDICAID ==
[~2024-09-30] VITALS: Ht 157.5 cm; Wt 50.8 kg
--- NOTE | 2024-09-30 21:48 | ED.PDOC ---
GI ASSESSMENT HPI Comments 79 y.o female presents to the ED for a chief complaint of constipation associated with abdominal pain, bloating and nausea that started 3 days ago. Patient reports last BM she was straining with small hard stool noted. Patient was seen for this c/o in May of 2024 at [facility], was admitted and given medication in which relieved her constipation. Patient has been taking Miralax and dietary food to pass a BM but was unsuccessful. Patient denies any rectal bleeding, vomiting, fever, chills. Time Seen by MD: 21:40 Primary Care Provider: OSBALDO Reviewed Notes: Nurses Notes, Medications, Allergies Allergies: Coded Allergies: NO KNOWN ALLERGIES (Unverified , 05/30/22) Home Meds Active Scripts Pantoprazole Sodium Sesquihydr (Protonix) 40 Mg Tab, 40 MG PO DAILY for 30 Days, #30 TAB 2 Refills Prov:RAISA FERNANDEZ MD 05/30/24 Lactulose (Lactulose) 10 Gm/15 Ml Tami, 10 GM PO BIDP PRN for 30 Days, #120 ML 1 Refill Prov:RAISA FERNANDEZ MD 05/30/24 Reported Medications Losartan Potassium (Losartan Potassium) 25 Mg Tab, 1 TAB PO DAILY 05/30/22 Information Source: Patient Mode of Arrival: Ambulatory Timing: Days (3) Duration: Since onset Quality: Aching Vomitus: None Stool: Empty Severity: Moderate Recent: None Recent Hx of: None Pain Location: Diffuse Modifying Factors: Nothing Associated sign and symptoms: Nausea, Constipation, Abdominal Pain Past Medical History PAST MEDICAL HISTORY: Cancer Surgical History: Cholecystectomy, Hysterectomy PROCESS PLANNER History: No Pertinent PROCESS PLANNER History Family History Family History: Reviewed,noncontributory to illness Social History Smoker: Non-Smoker Alcohol: Denies ETOH Use Drugs: Denies Drug Use Lives In: Home Constitutional: denies: chills, diaphoresis, fatigue, fever, malaise, sweats, weakness, others EENTM: denies: blurred vision, double vision, ear bleeding, ear discharge, ear drainage, ear pain, ear ringing, eye pain, eye redness, hearing loss, mouth pain, mouth swelling, nasal discharge, nose bleeding, nose congestion, nose pain, photophobia, tearing, throat pain, throat swelling, voice changes, others Respiratory: denies: cough, hemoptysis, orthopnea, SOB at rest, shortness of breath, SOB with excertion, stridor, wheezing, others Cardiovascular: denies: chest pain, dizzy spells, diaphoresis, Dyspnea on exertion, edema, irregular heart beat, left arm pain, lightheadedness, palpitations, PND, syncope, others Gastrointestinal: reports: abdomen distended, abdominal pain, constipated, n ausea; denies: blood streaked bowels, diarrhea, dysphagia, difficulty swallowing, hematemesis, melena, poor appetite, poor fluid intake, rectal bleeding, rectal pain, vomiting, others Genitourinary: denies: abnormal vagina bleeding, burning, dyspareunia, dysuria, flank pain, frequency, hematuria, incontinence, pain, , vagina discharge, urgency, others Neurological: denies: dizziness, fainting, headache, left sided numbness, left sided weakness, numbness, paresthesia, pre-existing deficit, right sided numbness, right sided weakness, seizure, speech problems, tingling, tremors, weakness, others Musculoskeletal: denies: back pain, gout, joint pain, joint swelling, muscle pain, muscle stiffness, neck pain, others Integumetry: denies: bruises, change in color, change in hair/nails, dryness, laceration, lesions, lumps, rash, wounds, others Allergic/Immunocompromised: denies: Difficulty Healing, Frequent Infections, Hives, Itching, others Hematologic/Lymphatic: denies: anemia, blood clots, easy bleeding, easy bruising, swollen glands, others Endocrine: denies: excessive hunger, excessive sweating, excessive thirst, excessive urination, flushing, intolerance to cold, intolerance to heat, unexplained weight gain, unexplained weight loss, others Psychiatric: denies: anxiety, bipolar disorder, depression, hopeless, panic disorder, schizophrenia, sleepless, suicidal, others All Other Systems: Reviewed and Negative Physical Exam General Appearance: No Apparent Distress, Normal HEENT: Normal ENT Inspection, Pharynx Normal, TMs Normal Neck: Full Range of Motion, Non-Tender, Normal, Normal Inspection Respiratory: Chest Non-Tender, Lungs Clear, No Accessory Muscle Use, No Respiratory Distress, Normal Breath Sounds Cardiovascular: No Edema, No JVD, No Murmur, No Gallop, Normal Peripheral Pulses, Regular Rate/Rhythm Breast Exam: Deferred Gastrointestinal: Diffuse, Tenderness Genitalia: Deferred Pelvic: Deferred Rectal: Deferred Extremities: No calf tenderness, Normal capillary refill, Normal inspection, Normal range of motion, Non-tender, No pedal edema Musculoskeletal : Apperance: Normal Neurologic: Alert, career specialist II-XII nml as Tested, No Motor Deficits, Normal Affect, Normal Mood, No Sensory Deficits Cerebellar Function: Normal Reflexes: Normal Skin: Dry, Normal Color, Warm Lymphatic: No Adenopathy Was a procedure done? Was a procedure done?: No GI differential Dx Differential Diagnosis: Bowel Obstruction, Constipation, Esophagitis, Viral, Impaction X-Ray, Labs, Meds, VS Vital Signs Date Time Temp Pulse Resp B/P (MAP) Pulse Ox O2 Delivery O2 Flow Rate FiO2 09/30/24 21:47 98.3 69 16 159/77 (104) 95 98.3 X-Ray, Labs, Meds, VS Comment Imaging: X-rays and CT scans were reviewed and interpreted by this provider, imaging shows large stool burden Pending radiology review. Laboratory: Labs reviewed and interpreted by this provider. No significant abnormalities noted. Patient has prior medical visits reviewed. Med reconciliation performed Vital signs reviewed Time of 1ST Reevaluation: 21:48 Reevaluation 1ST: Unchanged Patient Education/Counseling: Diagnosis, Treatment, Prognosis, Need For Follow Up (Follow up in 24-48 hours if symptoms worsen.) Family Education/Counseling: No Family Present SEPSIS Sepsis Screen Physician Orders Ct Ab Pel Wo Con-No Oral Or Iv (09/30/24 21:51) Vital Signs Date Time Temp Pulse Resp B/P (MAP) Pulse Ox O2 Delivery O2 Flow Rate FiO2 09/30/24 21:47 98.3 69 16 159/77 (104) 95 98.3 Departure 1 Departure Time of Disposition: 22:49 Impression: Primary Impression: Constipation Qualified Codes: K59.01 - Slow transit constipation Disposition: 01 HOME / SELF CARE / HOMELESS Condition: Fair e-Prescriptions Lactulose (Lactulose) 10 Gm/15 Ml Tami 10 GM PO BID PRN, #200 ML Prov: GAMA ROBLERO 09/30/24 Discharged With: Self Critical Care Note Critical Care Time?: No Stability Stability form required: No I personally scribed for GAMA ROBLERO ([facility]) on 09/30/24 at 21:48. Electronically submitted by Zully Cherry ([facility]). GAMA ROBLERO [facility] Sep 30, 2024 21:48
--- NOTE | 2024-09-30 22:45 | DVH ---
CT ABDOMEN AND PELVIS Indication: abd pain Comparison: CT CT AB PEL WO CON-NO ORAL OR IV on DOS: 05/28/24, CT CT AB PEL WO CON-NO ORAL OR IV on D OS: 12/27/22, CT CT AB PEL WO CON-NO ORAL OR IV on DOS: 05/30/22 Technique: Utilizing a multislice CT scanner, a CT scan of the abdomen and pelvis was performed witho ut intravenous contrast. Coronal and sagittal reformatted images are also provided for evaluation. All CT scans at this facility use dose modulation, iterative reconstruction, and/or weight based dosi ng when appropriate to reduce radiation dose to as low as reasonably achievable. DLP (mGy-cm): 266 Findings: Limited sections of the lung bases demonstrate no focal pulmonary mass. The liver, spleen, pancreas, and both adrenal glands demonstrate no acute findings. The gallbladder is not well seen. Moderate hiatal hernia ; otherwise stomach is unremarkable. The small bowel loops are not dilated. The appendix is not clearly identified, although there are no secondary signs of appendicitis. No bowel obstruction. Large colonic stool burden which may reflect constipation. There is fecalizatio n within the distal small bowel and within the small bowel loop with suture line/resection site at th e anterior mid abdomen where longstanding constipation is suspected. Colitis not excluded. The pelvic structures are intact. There is no solid pelvic mass. Lymph nodes are unremarkable. Nonobstructive small stone within the left kidney. Otherwise bilateral kidneys are unremarkable. No o bstructive uropathy. The urinary bladder is distended. There is no free air or free fluid. The aorta and IVC demonstrate no acute findings. 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 Visualized osseous structures demonstrate no acute abnormality. Extensive multilevel degenerative ulises nges of the lumbar spine Nonspecific slight bilateral gluteal soft tissue inflammation. IMPRESSION: 1. Large colonic stool burden which may reflect constipation. There is fecalization within the distal small bowel and within the small bowel loop with suture line/resection site at the anterior mid abdo men where longstanding constipation is suspected. No definite high-grade mechanical bowel obstruction . Colitis not excluded. 2. Moderate hiatal hernia
[2024-09-30] MEDS ORDERED: LACT10SO3 PO (22:53)
[2024-10-01] VITALS: BP 158/69; TEMP 97.6
[2024-10-01 00:01] VITALS: PULSE 64; RESP 16; O2SAT 95
== END 2024-10-01 00:04 | disposition home or self-care (01) ==
LOC: ER 21:11
DX: K59.00 Constipation, unspecified (principal); Z90.710 Acquired absence of both cervix and uterus; Z90.49 Acquired absence of other specified parts of digestive tract; Z79.899 Other long term (current) drug therapy
CPT/HCPCS: 74176

== ENCOUNTER 2024-10-16 08:20 | Outpatient (CLI) | payer MEDICARE, MEDICAID ==
[2024-10-16 09:11] LABS: Anion Gap 8 (5-15); Carbon Dioxide 31 mmol/L (20-31); Chloride 104 mmol/L (98-107); Potassium 4.2 mmol/L (3.5-5.1); Sodium 143 mmol/L (136-145)
[2024-10-16 09:12] LABS: Calcium 9.5 mg/dL (8.7-10.4)
[2024-10-16 09:17] LABS: BUN/Creatinine Ratio 26.4 (10.0-20.0); Blood Urea Nitrogen 19 mg/dL (9-23); Glucose 87 mg/dL (74-106)
== END 2024-10-16 17:00 | disposition home or self-care (01) ==
LOC: LAB 08:20
PROVIDERS: ATTEND Internal Medicine
DX: I10 Essential (primary) hypertension (principal); D72.819 Decreased white blood cell count, unspecified
CPT/HCPCS: 36415; 80048